=== PATIENT | female | born 1930 | race Caucasian/White ===

== ENCOUNTER 2017-01-16 03:03 | Inpatient (IN) | payer MEDICARE, BC ==
[~2017-01-16] VITALS: Ht 152.4 cm; Wt 54.0 kg
[~2017-01-16 03:03] MED LIST: ASPI-605 PO; CALC-343 PO; CARV6.252 PO; CITA10TA9 PO; FURO20TA4 PO; GABA-534 PO; LEVO75TA PO; LORA10TA68 PO; MULT1TAB73 PO; PANT40TA2 PO; SUCR1ORA6 PO
--- NOTE | 2017-01-16 04:00 | NUR ---
86 YO FEMALE [facility]. PT IS ALERT X 3, PER EMS, PT WAS SENT BY [facility] ABNORMAL LABS; LOW HGB AND HCT. PT DS TO ER BED, SKIN WARM AND DRY, RR EVEN AND UNLABORED. PT GOWNED, PLACED ON PIZZA DELIVERY. AWAITING ORDERS FROM PROVIDER
[2017-01-16 04:08] LABS: BASOPHILS # (AUTO) 0.1 /CMM (0.0-0.2); BASOPHILS % (AUTO) 1.3 % (0.0-2.0); EOSINOPHILS # (AUTO) 0.5 /CMM (0.0-0.7); EOSINOPHILS % (AUTO) 6.9 % (0.0-6.0); HEMATOCRIT 22 % (33-45); HEMOGLOBIN 7.1 g/dL (11.5-14.8); LYMPHOCYTES # (AUTO) 2.4 /CMM (0.8-4.8); MEAN CORPUSCULAR HEMOGLOBIN 30 PG (26.0-33.0); MEAN CORPUSCULAR HGB CONC 32 g/dl (31.0-36.0); MEAN CORPUSCULAR VOLUME 95 fL (82-100); MONOCYTES # (AUTO) 0.7 /CMM (0.1-1.30); MONOCYTES % (AUTO) 9.6 % (2.0-12.0); NEUTROPHILS # (AUTO) 3.6 /CMM (1.8-8.9); NEUTROPHILS % (AUTO) 49.2 % (43.0-81.0); PLATELET COUNT (AUTO) 257 /CMM (150-450); RDW COEFFICIENT OF VARIATION 17.1 (11.5-15.0); RED BLOOD CELL COUNT(AUTO) 2.33 MIL/uL (4.0-5.2); WHITE BLOOD COUNT (AUTO) 7.3 K/uL (4.3-11.0)
[2017-01-16 04:20] LABS: CALCIUM, SERUM 8.7 mg/dL (8.5-10.1); CARBON DIOXIDE 35 mmol/L (21-32); CHLORIDE 101 mmol/L (98-107); CREATININE 1.2 mg/dL (0.6-1.3); GLUCOSE 95 mg/dL (74-106); POTASSIUM 4.1 mmol/L (3.5-5.1); SODIUM SERUM 138 mmol/L (136-145); UREA NITROGEN, BLOOD 40 mg/dL (7-18)
--- NOTE | 2017-01-16 04:23 | NUR ---
MEDICATED PT ORDERED
[2017-01-16 04:26] LABS: INR 0.99 (0.87-1.13); PROTHROMBIN TIME 10.3 SECS (9.5-12.7)
[2017-01-16 04:27] LABS: TROPONIN I 0.025 ng/mL (0.00-0.056)
[2017-01-16 04:33] LABS: ALANINE AMINOTRANSFERASE 19 U/L (12-78); ALBUMIN 2.7 g/dL (3.4-5.0); ALKALINE PHOSPHATASE 71 U/L (46-116); ASPARTATE AMINOTRANSFERASE 25 U/L (15-37); BILIRUBIN,DIRECT 0.1 mg/dL (0.0-0.2); BILIRUBIN,TOTAL 0.4 mg/dL (0.2-1.0); TOTAL PROTEIN, SERUM 6.5 g/dL (6.4-8.2)
--- NOTE | 2017-01-16 05:10 | NUR ---
JOE PAGED BACK
--- NOTE | 2017-01-16 05:35 | NUR ---
RN NOTES RECEIVED PATIENT FROM ER. PATIENT AO X 2, ABLE TO MAKE NEEDS KNOWN. NO ACUTE DISTRESS NOTED. IV SITE PATENT, INTACT. FLUSHED. SKIN ASSESSMENT DONE. ON LOW BED WITH BILATERAL UPPER SIDE RAILS UP. CALL LIGHT WITHIN EASY REACH. WILL CONTINUE TO MONITOR.
--- NOTE | 2017-01-16 06:09 | NUR ---
ENDORSED PROTONIX DRIP TO CONTRACT ADMINISTRATION COORDINATOR
--- NOTE | 2017-01-16 06:11 | NUR ---
TRANSPOTED PT TO TELE BED WITHOUT INCIDENT
--- NOTE | 2017-01-16 06:14 | NUR ---
RN NOTES DR. BARBY AGUILAR. WAITING FOR CALL BACK.
--- NOTE | 2017-01-16 07:57 | NUR ---
MS RN NOTES PT RECEIVED IN NO APPARENT DISTRESS. PT IS RESTING IN BED. LEFT UPPER ARM PICC LINE INTACT AND PATENT. BEDSIDE RAILS ARE UP X2. BED IS LOCKED AND LOWERED. WILL CONTINUE TO MONITOR.
[2017-01-16 08:00] VITALS: BP 130/79
[2017-01-16] MEDS ORDERED: OMEP40CA37 PO (08:05)
[2017-01-16] MEDS ORDERED: ASCO500T9 PO (08:05)
[2017-01-16] MEDS ORDERED: FERR-58 PO (08:05)
[2017-01-16] MEDS ORDERED: ACET-868 PO (08:05)
[2017-01-16] MEDS ORDERED: FURO40TA5 PO (08:05)
[2017-01-16] MEDS ORDERED: POLY17PO4 PO (08:05)
[2017-01-16] MEDS ORDERED: LEVO88TA5 PO (08:05)
[2017-01-16] MEDS ORDERED: SENN8.6T6 PO (08:05)
[2017-01-16] MEDS ORDERED: HYDR-3326 PO (08:05)
[2017-01-16] MEDS ORDERED: ENOX40DI SQ (08:05)
[2017-01-16] MEDS ORDERED: BISA10SU8 RC (08:05)
[2017-01-16] MEDS ORDERED: MULT-24 PO (08:05)
[2017-01-16] MEDS ORDERED: DOCU-25 PO (08:05)
[2017-01-16] MEDS ORDERED: PHEN180S MM (08:05)
[2017-01-16] MEDS ORDERED: NA P133E RC (08:05)
[2017-01-16] MEDS ORDERED: ACID1TAB12 PO (08:05)
[2017-01-16] MEDS ORDERED: NAPR220T66 PO (08:05)
[2017-01-16] MEDS ORDERED: CITA20TA19 PO (08:05)
[2017-01-16] MEDS ORDERED: AMIN30LI4 PO (08:05)
[2017-01-16] MEDS ORDERED: CARV3.122 PO (08:05)
--- NOTE | 2017-01-16 10:55 | NUR ---
WOUND CARE CONSULT PATIENT SEEN AND SKIN ASSESSMENT DONE WITH THE EXCEPTION OF THE RIGHT CLAVICLE WOUND. PATIENT WANTED TO WAIT AND HAVE THAT CHANGED LATER TODAY AFTER GOING TO THE BATHROOM AND GETTING HER AM CARE. SEE PUBLICATION SPECIALIST ASSESSMENT IN [facility] FOR TODAY. PATIENT IS INDEPENDENT WITH BED MOBILITY AT THIS TIME AND IS NOTED TO BE CONTINENT. PATIENT STATES THAT SOMETIMES SHE "DRIBBLES" A LITTLE BIT. WILL RECOMMEND Z GUARD PRN. RECOMMEND SURGICAL CONSULT WELL PODIATRY CONSULT FOR LONG THICKENED TOENAILS X 10 WITH SEVERELY DRY SKIN. PATIENT ON MARGIE BED WITH COMFOR GEL MATTRESS AT THIS TIME. PATIENT WITH SACRAL REGION SKIN STAINING WITH INTACT SKIN. WOUND CARE WILL RE-APPLY WOUND VAC TOMORROW PER PATIENT REQUEST. ALL SUPPLIES ORDERED FROM [facility]. NURSING TO PLACE PATIENT HOME PORTABLE VAC UNIT IN PATIENT BELONGINGS BAG WITH HER NAME TO SEND BACK TO [facility] WITH PATIENT UPON DISCHARGE. THERE WAS NO CAMERA REPAIRMAN SENT WITH PATIENT TO THE HOSPITAL FOR THE PORTABLE VAC MACHINE. PATIENT WITH CURRENT ANGELICA AT 18. ALL SKIN MANAGMENT Addendum: 01/16/17 at 1103 by SYDNI BELTRAN Amended: Links added. Addendum: 01/16/17 at 1108 by SYDNI BELTRAN PUBLICATION SPECIALIST THERE WAS NOTED APPROX 20 CC'S OF SEROSANGUINOUS DRNG IN THE VAC CANNISTER TODAY.
[2017-01-16 12:15] LABS: BASOPHILS # (AUTO) 0.1 /CMM (0.0-0.2); BASOPHILS % (AUTO) 1.3 % (0.0-2.0); EOSINOPHILS # (AUTO) 0.5 /CMM (0.0-0.7); EOSINOPHILS % (AUTO) 7.1 % (0.0-6.0); HEMATOCRIT 22 % (33-45); HEMOGLOBIN 7.1 g/dL (11.5-14.8); LYMPHOCYTES # (AUTO) 1.4 /CMM (0.8-4.8); LYMPHOCYTES % (AUTO) 21.9 % (20.0-44.0); MEAN CORPUSCULAR HEMOGLOBIN 31 PG (26.0-33.0); MEAN CORPUSCULAR HGB CONC 32 g/dl (31.0-36.0); MEAN CORPUSCULAR VOLUME 96 fL (82-100); MONOCYTES # (AUTO) 0.5 /CMM (0.1-1.30); MONOCYTES % (AUTO) 7.7 % (2.0-12.0); PLATELET COUNT (AUTO) 242 /CMM (150-450); RED BLOOD CELL COUNT(AUTO) 2.33 MIL/uL (4.0-5.2); WHITE BLOOD COUNT (AUTO) 6.5 K/uL (4.3-11.0)
[2017-01-16 12:17] LABS: CALCIUM, SERUM 8.5 mg/dL (8.5-10.1); CARBON DIOXIDE 34 mmol/L (21-32); CHLORIDE 101 mmol/L (98-107); CREATININE 1.2 mg/dL (0.6-1.3); GLUCOSE 138 mg/dL (74-106); POTASSIUM 3.9 mmol/L (3.5-5.1); SODIUM SERUM 137 mmol/L (136-145); UREA NITROGEN, BLOOD 36 mg/dL (7-18)
--- NOTE | 2017-01-16 14:00 | NUR ---
MS RN NOTES PATIENTS PROTONIX SCANNED AND SAVED APPEARS IN EMAR NOT SCANNED, MANUALLY CLICKED ADMINISTERED.
[2017-01-16 16:00] VITALS: BP 97/56
--- NOTE | 2017-01-16 18:50 | NUR ---
MS RN CLOSING NOTES PT IS STABLE. ON 2L OF NC SATTING AT 99%. BEDSIDE RAILS ARE UP X2. BED IS LOWERED AND LOCKED. WILL ENDORSE PATIENT TO TUBE TEST TECHNICIAN NURSE FOR CATHY.
[2017-01-16 20:00] VITALS: BP 106/67
--- NOTE | 2017-01-16 20:00 | NUR ---
RN NOTES RECEIVED PATIENT IN BED, ALERT AND ORIENTED X3, ABLE TO VERBALIZE NEEDS, NO SOB, TOLERATING NC AT 2LPM, SPO2 100%, DENIES ANY PAIN AT THIS TIME. YASSINE PICC LINE IS PATENT AND INFUSING WELL WITH PROTONIX IV AT 50 CC/HR. SEEN BY DR. PAZ AND NEW ORDER OF COLONOSCOPY WITH EGD. WILL GET CONSENT. PATIENT NOTIFIED OF PROCEDURE AND WILL SIGN CONSENT. WILL CALL DAUGHTER MILES FOR NOTIFICATION. NEEDS ATTENDED, CALL LIGHT WITHIN REACH.
--- NOTE | 2017-01-16 20:30 | NUR ---
RN NOTES OBTAINED CONSENT FROM PATIENT TO COLONOSCOPY AND EGD IN AM. EXPLAINED TO PATIENT PROCEDURE AND VERBALIZED UNDERSTANDING, NO CALL BACK FROM MILES, DAUGHTER.
--- NOTE | 2017-01-16 20:31 | NUR ---
RN NOTES PLACED CALL TO MILES VILLASENOR, PRIMARY CONTACT AND DAUGHTER AT [phone], LEFT A MESSAGE REGARDING COLONOSCOPY AND EGD IN AM. CELL NO. [phone] IS A NON WORKING NUMBER. PATIENT STARTED DRINKING GOLYTELY ORDERED.
--- NOTE | 2017-01-17 04:30 | NUR ---
RN NOTES PATIENT HAD X6 BM, LIQUID AND GREENISH IN COLOR, PROVIDED PERINEAL CARE
--- NOTE | 2017-01-17 06:55 | NUR ---
RN NOTES PLACED A CALL TO MD DANCE CRITIC FOR ORDER OF IV FLUIDS, PATIENT NPO SINCE 99 FOR COLONOSCOPY TODAY. AWAITING CALL BACK
--- NOTE | 2017-01-17 07:06 | NUR ---
RN NOTES PATIENT RESTING COMFORTABLY IN BED, RESPIRATION EVEN AND UNLABORED, NO DISTRESS, NOT IN APPARENT PAIN, NPO SINCE 99, COMPLIANT WITH GOLYTELY, HAD X7 BM, STOOL IS GREENISH AND LIQUID. EDUCATED ON COLONOSCOPY AND EGD PROCEDURE TODAY. NO CALL BACK FROM DAUGHTER MILES, ALL NEEDS ATTENDED, PROVIDED GOOD PERINEAL CARE, CALL LIGHT WITHIN REACH.
--- NOTE | 2017-01-17 07:20 | NUR ---
RN NOTES NEW ORDER OF D51/2 NS AT 40 CC/HR, ENDORSED TO AM NURSE
[2017-01-17 07:29] LABS: BASOPHILS # (AUTO) 0.1 /CMM (0.0-0.2); BASOPHILS % (AUTO) 0.9 % (0.0-2.0); EOSINOPHILS # (AUTO) 0.4 /CMM (0.0-0.7); EOSINOPHILS % (AUTO) 5.8 % (0.0-6.0); HEMATOCRIT 22 % (33-45); HEMOGLOBIN 7.2 g/dL (11.5-14.8); LYMPHOCYTES % (AUTO) 27.7 % (20.0-44.0); MEAN CORPUSCULAR HEMOGLOBIN 32 PG (26.0-33.0); MEAN CORPUSCULAR HGB CONC 34 g/dl (31.0-36.0); MEAN CORPUSCULAR VOLUME 95 fL (82-100); MONOCYTES # (AUTO) 0.6 /CMM (0.1-1.30); MONOCYTES % (AUTO) 8.6 % (2.0-12.0); NEUTROPHILS # (AUTO) 4.2 /CMM (1.8-8.9); PLATELET COUNT (AUTO) 247 /CMM (150-450); RDW COEFFICIENT OF VARIATION 16.6 (11.5-15.0); RED BLOOD CELL COUNT(AUTO) 2.27 MIL/uL (4.0-5.2); WHITE BLOOD COUNT (AUTO) 7.3 K/uL (4.3-11.0)
[2017-01-17 07:48] LABS: ALANINE AMINOTRANSFERASE 20 U/L (12-78); ALBUMIN 2.6 g/dL (3.4-5.0); ALKALINE PHOSPHATASE 73 U/L (46-116); ASPARTATE AMINOTRANSFERASE 20 U/L (15-37); BILIRUBIN,TOTAL 0.4 mg/dL (0.2-1.0); CALCIUM, SERUM 8.6 mg/dL (8.5-10.1); CARBON DIOXIDE 32 mmol/L (21-32); CHLORIDE 101 mmol/L (98-107); GLUCOSE 99 mg/dL (74-106); MAGNESIUM 1.7 mg/dL (1.8-2.4); PHOSPHORUS 3.3 mg/dL (2.5-4.9); POTASSIUM 4.3 mmol/L (3.5-5.1); SODIUM SERUM 137 mmol/L (136-145); TOTAL PROTEIN, SERUM 6.3 g/dL (6.4-8.2); UREA NITROGEN, BLOOD 26 mg/dL (7-18)
[2017-01-17 08:00] VITALS: BP 100/61
[2017-01-17 08:10] LABS: FERRITIN 491 ng/mL (8-388)
[2017-01-17 09:11] LABS: IRON, SERUM 29 ug/dl (50-175); TOTAL IRON BINDING CAPACITY 187 ug/dl (250-450)
--- NOTE | 2017-01-17 11:01 | NUR ---
WOUND CARE CONSULT: PT SEEN FOR RT CLAVICLE WOUND AND RT GROIN WOUND, PRESENT ON ADMISSION. RECOMMEND SURGICAL CONSULT. PT NOTED TO BE SLIGHTLY AGITATED AND DOES NOT WANT TO TALK ABOUT HER WOUNDS. RECOMMENDATIONS FOR WOUND CARE AND SKIN PROTECTION DISCUSSED WITH NURSING STAFF. WILL SEE PRN. LINDSAY IN AGREEMENT WITH PLAN OF CARE. Addendum: 01/17/17 at 1103 by IZABELLA MCINTOSH WNDNU Amended: Links added.
--- NOTE | 2017-01-17 11:48 | NUR ---
0800. PATIENT RECEIVED AWAKE ALERT AND ORIENTED. IN NO ACUTE RESPIRATORY DISTRESS. N.P.O. FOR G.I. PROCEDURES PENDING FOR TODAY. V.S.S. ALL NEEDS MET. DENIES PAIN AT THIS TIME. Addendum: 01/17/17 at 1151 by JOJO KING RN Amended: Links added.
--- NOTE | 2017-01-17 14:12 | NUR ---
1410. PATIENT AWAKE ALERT AND ORIENTED. REMAINS NPO FOR SCHEDULED G.I. PROCEDURES TODAY. V.S.S. C/O THIRST. ALLOWED TO RINSE MOUTH WITH H20. STABLE AT THIS TIME. Addendum: 01/17/17 at 1421 by JOJO KING RN Amended: Links added.
[2017-01-17 14:13] VITALS: BP 100/61
--- NOTE | 2017-01-17 15:50 | NUR ---
m/s school aide: notes received pt in bed awake, a/ox3 with forgetfulness. daughter and son-in-law at bedside. consent obtained for ct chest with contrast and consent for right clavicle biopsy and debridement and pt verbalized understanding. will continue to monitor. Addendum: 01/17/17 at 1844 by CECE CRAIN QUALIFIED CRAFT WORKER ELECTRICIAN pt remains npo since yesterday per antoni (rn) and pt. kept pt npo, for possible egd/colonoscopy per report. will f/u with dr. rahman.
[2017-01-17 16:00] VITALS: BP 101/61
--- NOTE | 2017-01-17 16:10 | NUR ---
m/s heliotherapist: notes left message to dr. rahman re: egd/colonoscopy procedure via answering machine. per kita reyes (rn), pt is not schedule today/tomorrow. cn made aware. pt unable to recall when she had the last drink of golytely, but stated, "probably yesterday." family at bedside and concerns about pt hasn't eaten. all concerns answered. will continue to monitor. call light within reach.
--- NOTE | 2017-01-17 16:15 | NUR ---
m/s welding foreman: notes 1st bag of magso4 1 gram ivpb given by rn at this time.
--- NOTE | 2017-01-17 16:25 | NUR ---
m/s wheel and axle inspector: notes susan ( special education secretary) returning call and will relay message to dr. rahman.
--- NOTE | 2017-01-17 16:55 | NUR ---
m/s emblem drawer in: notes wound tx done to right groin and right shoulder area as ordered. family remains at bedside. still awaiting for dr. rahman to call back to clarify egd/colonoscopy.
--- NOTE | 2017-01-17 17:05 | NUR ---
m/s aba therapist: notes dr. rahman called back and informed md that pt has been npo since yesterday and prep was started last night, but pt did not finished the golytely (04/24 only). md will call rn bull gang supervisor and will schedule egd at 1830. family left already. pt made aware and verbalized understanding. cn made aware.
--- NOTE | 2017-01-17 17:30 | NUR ---
m/s veneer manufacturer: notes confirmed with rn core assembly supervisor and o.r. team that pt is schedule for egd magy 1829. pt made aware and agreed. bharati (daughter) notified, left message via voice mail re: egd magy.
--- NOTE | 2017-01-17 17:45 | NUR ---
m/s hvac technician: notes castro (younger daughter) notified per pt's request and informed her that pt is schedule for egd at 1830 tonight, spoke to her over the phone and will text bharati (sister) to let her know.
--- NOTE | 2017-01-17 18:28 | NUR ---
m/s change manager: notes pt taken to o.r. at this time via bed accompanied by o.r. team with chart.
--- NOTE | 2017-01-17 19:10 | NUR ---
MS/RN NOTES RECEIVED REPORT FROM [facility]. PER [facility] NURSE PT. IS CURRENTLY GETTING EGD DONE WITH DR. PAZ. PER [facility] NURSE WHEN PT. COMES BACK FROM EGD CALL RADIOLOGY FOR PT. TO HAVE CT WITH CONTRAST PERFORMED. WILL AWAIT FOR PT. ARRIVAL BACK TO THE FLOOR. WILL CONTINUE TO MONITOR.
--- NOTE | 2017-01-17 19:28 | NUR ---
MS/RN NOTES RECEIVED CALL FROM O.R. NURSE. PT. IN STABLE CONDITION. EGD WAS PERFORMED. VITAL SIGNS STABLE. NEW ORDER: FULL LIQUID DIET. PT. WILL BE COMING BACK TO THE FLOOR SOON. WILL AWAIT. PT. ARRIVAL TO THE FLOOR.
--- NOTE | 2017-01-17 19:35 | NUR ---
MS/RN NOTES PT. RETURNED TO THE FLOOR FROM EGD. PT. IN STABLE CONDITION. PT. IS AWAKE, ALERT AND ORIENTED X3. BREATHING EVEN AND UNLABORED ON 2LPM O2 VIA NC. NO SOB, RESPIRATORY DISTRESS OR COMPLAINTS OF PAIN NOTED AT THIS TIME. PT. WITH LEFT UPPER ARM PICC LINE PRESENT, PATENT AND INTACT ADMINISTERING TO PT. D5 1/2 NS @ 40 ML/HR. BED LOCKED AND IN LOWEST POSITION, CALL LIGHT WITHIN REACH, WILL CONTINUE TO MONITOR.
--- NOTE | 2017-01-17 19:57 | NUR ---
MS/RN NOTES PT. LEFT THE FLOOR FOR CT OF CHEST WITH CONTRAST. CONSENT SIGNED AND PLACED IN CHART.
[2017-01-17 20:00] VITALS: BP 139/92
--- NOTE | 2017-01-17 20:55 | NUR ---
MS/RN NOTES PT. ARRIVED BACK TO THE FLOOR FROM CT CHEST WITH CONTRAST. WILL CONTINUE TO MONITOR.
--- NOTE | 2017-01-17 21:25 | NUR ---
MS/RN NOTES PT. COUGHING UP SMALL AMOUNT OF BLOOD S/P EGD AND CT OF CHEST WITH CONTRAST. NO OTHER ACTIVE BLEEDING NOTED. ELEVATED HEAD OF BED. WILL CONTINUE TO MONITOR.
--- NOTE | 2017-01-17 21:55 | NUR ---
MS/RN NOTES PT. IS NO LONGER COUGHING UP BLOOD. PT. IS RESTING COMFORTABLY WITH HEAD OF BED ELEVATED. WILL CONTINUE TO MONITOR.
[2017-01-18] VITALS (8 sets, daily range): BP systolic 87–115; BP diastolic 52–74
--- NOTE | 2017-01-18 06:26 | NUR ---
MS/RN NOTES PT. IS LYING IN BED RESTING. BREATHING EVEN AND UNLABORED ON 2LPM O2 VIA NC. NO SOB, RESPIRATORY DISTRESS OR COMPLAINTS OF PAIN NOTED AT THIS TIME. PT. WITH LEFT UPPER ARM PICC LINE PRESENT, PATENT AND INTACT ADMINISTERING TO PT. D5 1/2 NS @ 40 ML/HR. ALL PT. NEEDS MET. WOUND CARE PROVIDED ORDERED. ALL DUE MEDICATIONS GIVEN. BED LOCKED AND IN LOWEST POSITION, CALL LIGHT WITHIN REACH, WILL ENDORSE TO DAYSHIFT NURSE FOR CONTINUITY OF CARE.
--- NOTE | 2017-01-18 07:10 | NUR ---
MS/RN NOTES PT. IN BED, SLEEPING, AROUSES EASILY. BREATHING EVEN AND UNLABORED, ON 2LPM O2 VIA NC. PT. PICC LINE YASSINE, ON D5 1/2 NS @ 40 ML/HR, TOLERATING WELL, NO SOB. RIGHT CLAVICLE WOUND DRESSING IN PLACE, NO C/O PAIN AT THIS TIME. CALL LIGHT WITHIN REACH. WILL CONT TO MONITOR.
[2017-01-18 07:22] LABS: BASOPHILS # (AUTO) 0.1 /CMM (0.0-0.2); BASOPHILS % (AUTO) 0.8 % (0.0-2.0); EOSINOPHILS # (AUTO) 0.4 /CMM (0.0-0.7); EOSINOPHILS % (AUTO) 3.6 % (0.0-6.0); HEMATOCRIT 21 % (33-45); HEMOGLOBIN 7.1 g/dL (11.5-14.8); LYMPHOCYTES # (AUTO) 1.6 /CMM (0.8-4.8); MEAN CORPUSCULAR HEMOGLOBIN 32 PG (26.0-33.0); MEAN CORPUSCULAR HGB CONC 34 g/dl (31.0-36.0); MEAN CORPUSCULAR VOLUME 95 fL (82-100); MONOCYTES # (AUTO) 0.8 /CMM (0.1-1.30); MONOCYTES % (AUTO) 7.7 % (2.0-12.0); NEUTROPHILS # (AUTO) 7.3 /CMM (1.8-8.9); NEUTROPHILS % (AUTO) 71.9 % (43.0-81.0); PLATELET COUNT (AUTO) 247 /CMM (150-450); RDW COEFFICIENT OF VARIATION 16.5 (11.5-15.0); RED BLOOD CELL COUNT(AUTO) 2.22 MIL/uL (4.0-5.2); WHITE BLOOD COUNT (AUTO) 10.2 K/uL (4.3-11.0)
[2017-01-18 07:47] LABS: CALCIUM, SERUM 8.6 mg/dL (8.5-10.1); CARBON DIOXIDE 30 mmol/L (21-32); CHLORIDE 100 mmol/L (98-107); GLUCOSE 102 mg/dL (74-106); MAGNESIUM 2.2 mg/dL (1.8-2.4); PHOSPHORUS 3.7 mg/dL (2.5-4.9); POTASSIUM 4.3 mmol/L (3.5-5.1); SODIUM SERUM 136 mmol/L (136-145); UREA NITROGEN, BLOOD 18 mg/dL (7-18)
--- NOTE | 2017-01-18 12:17 | NUR ---
PATIENT TOLERATED FULL LIQUIDS DIET, NO C/O NAUSEA, NO EPISODE OF VOMITING. PATIENT PREVIOUSLY ON REGULAR DIET, RESUMED ORDERED.
--- NOTE | 2017-01-18 15:32 | NUR ---
V/S TAKEN AND RECORDED. WITNESSED BY ANOTHER RN, STARTED ON BLOOD TRANSFUSION 1 UNIT PRBC. WILL MONITOR PATIENT CLOSELY.
--- NOTE | 2017-01-18 15:48 | NUR ---
BLOOD TRANSFUSION IN PROGRESS, PATIENT TOLERATING WELL. AFEBRILE, NO C/O SOB, DENIES CHEST PAIN. BREATHING EVEN AND NON LABORED. NO C/O PAIN OR ANY DISCOMFORT.
--- NOTE | 2017-01-18 16:21 | NUR ---
BLOOD TRANSFUSION STILL IN PROGRESS, PATIENT REMAINS STABLE, NO ADVERSE SIDE EFFECT. WILL CONT TO MONITOR CLOSELY.
--- NOTE | 2017-01-18 18:40 | NUR ---
MS/RN CLOSING NOTES PATIENT IN BED, V/S REMAINS STABLE. POST BLOOD TRANSFUSION 1 UNIT PRBC WITH NO ADVERSE SIDE EFFECT. RIGHT CLAVICLE WOUND DRESSING CHANGED TODAY, PATIENT TOLERATED WELL. IV D5 1/2 NS INFUSING AT 40ML/HR, TOLERATING WELL. NO C/O PAIN AT THIS TIME. WILL ENDORSE TO SOLAR INSTALLER TECHNICIAN RN FOR CONTINUITY OF CARE.
--- NOTE | 2017-01-18 19:10 | NUR ---
MS/RN NOTES RECEIVED PT. LYING IN BED RESTING. BREATHING EVEN AND UNLABORED ON 2LPM O2 VIA NC. NO SOB, RESPIRATORY DISTRESS OR COMPLAINTS OF PAIN NOTED AT THIS TIME. PT. WITH LEFT UPPER ARM PICC LINE PRESENT, PATENT AND INTACT ADMINISTERING TO PT. D5 1/2 NS @ 40 ML/HR. BED LOCKED AND IN LOWEST POSITION, CALL LIGHT WITHIN REACH, WILL CONTINUE TO MONITOR.
--- NOTE | 2017-01-19 06:09 | NUR ---
MS/RN NOTES PT. IS LYING IN BED RESTING. BREATHING EVEN AND UNLABORED ON 2LPM O2 VIA NC. NO SOB, RESPIRATORY DISTRESS OR COMPLAINTS OF PAIN NOTED AT THIS TIME. PT. WITH LEFT UPPER ARM PICC LINE PRESENT, PATENT AND INTACT ADMINISTERING TO PT. D5 1/2 NS @ 40 ML/HR. ALL PT. NEEDS MET. PT. TURNED AND REPOSITIONED Q2H AND NEEDED. ALL DUE MEDICATIONS GIVEN. BED LOCKED AND IN LOWEST POSITION, CALL LIGHT WITHIN REACH, WILL ENDORSE TO DAYSHIFT NURSE FOR CONTINUITY OF CARE.
[2017-01-19 06:25] LABS: BASOPHILS # (AUTO) 0.1 /CMM (0.0-0.2); BASOPHILS % (AUTO) 1.1 % (0.0-2.0); EOSINOPHILS # (AUTO) 0.5 /CMM (0.0-0.7); EOSINOPHILS % (AUTO) 6.4 % (0.0-6.0); HEMATOCRIT 26 % (33-45); HEMOGLOBIN 8.6 g/dL (11.5-14.8); LYMPHOCYTES # (AUTO) 1.8 /CMM (0.8-4.8); LYMPHOCYTES % (AUTO) 21.8 % (20.0-44.0); MEAN CORPUSCULAR HEMOGLOBIN 31 PG (26.0-33.0); MEAN CORPUSCULAR HGB CONC 34 g/dl (31.0-36.0); MEAN CORPUSCULAR VOLUME 92 fL (82-100); MONOCYTES % (AUTO) 12.3 % (2.0-12.0); NEUTROPHILS # (AUTO) 4.9 /CMM (1.8-8.9); NEUTROPHILS % (AUTO) 58.4 % (43.0-81.0); PLATELET COUNT (AUTO) 234 /CMM (150-450); RDW COEFFICIENT OF VARIATION 17.9 (11.5-15.0); RED BLOOD CELL COUNT(AUTO) 2.77 MIL/uL (4.0-5.2); WHITE BLOOD COUNT (AUTO) 8.3 K/uL (4.3-11.0)
[2017-01-19 06:44] LABS: CALCIUM, SERUM 8.4 mg/dL (8.5-10.1); CARBON DIOXIDE 29 mmol/L (21-32); CHLORIDE 98 mmol/L (98-107); CREATININE 0.9 mg/dL (0.6-1.3); GLUCOSE 100 mg/dL (74-106); MAGNESIUM 1.7 mg/dL (1.8-2.4); PHOSPHORUS 3.2 mg/dL (2.5-4.9); POTASSIUM 3.8 mmol/L (3.5-5.1); SODIUM SERUM 133 mmol/L (136-145); UREA NITROGEN, BLOOD 13 mg/dL (7-18)
--- NOTE | 2017-01-19 07:30 | NUR ---
MS/RN NOTES RECEIVED PATIENT IN BED, SLEEPING, AROUSES EASILY. APPEARS COMFORTABLE IN BED, ON 2LPM O2 VIA NC. BREATHING EVEN AND NON LABORED. PICC LINE YASSINE, ON D5 1/2 NS @ 40 ML/HR. RIGHT CLAVICLE WOUND DRESSING IN PLACE. NO C/O PAIN AT THIS TIME. SCD IN PLACE. CALL LIGHT WITHIN REACH. BED LOW. WILL CONT TO MONITOR
[2017-01-19 08:00] VITALS: BP 136/69
[2017-01-19 16:00] VITALS: BP 124/71
--- NOTE | 2017-01-19 18:40 | NUR ---
RN NOTES PER EDUAR MONROY REGULATORY PROCESS MANAGER RIGHT CLAVICLE BIOPSY AND DEBRIDEMENT SCHEDULED. CONSENT SIGHED AND PLACED IN THE CHART.
--- NOTE | 2017-01-19 18:44 | NUR ---
RN CLOSING NOTES PATIENT ALERT AND ORIENTED X3. VS STABLE. RESPIRATIONS EVEN AND UNLABORED. NO RESPIRATORY DISTRESS NOTED. PICC LINE YASSINE, ON D5 1/2 NS @ 40 ML/HR. RIGHT CLAVICLE WOUND DRESSING IN PLACE. NO C/O PAIN. CALL LIGHT WITHIN REACH. BED IN LOW POSITION. WILL ENDORSE TO DOUBLE NEEDLE STITCHERCHAIN DYER FOR CONTINUITY OF CARE.
--- NOTE | 2017-01-19 19:15 | NUR ---
MS/RN NOTES RECEIVED PT. SITTING UP IN BED. PT. IS AWAKE, ALERT AND ORIENTED X3. BREATHING EVEN AND UNLABORED ON 2LPM O2 VIA NC. NO SOB, RESPIRATORY DISTRESS OR COMPLAINTS OF PAIN NOTED AT THIS TIME. PT. WITH LEFT UPPER ARM PICC LINE PRESENT, PATENT AND INTACT ADMINISTERING TO PT. D5 1/2 NS @ 40 ML/HR. BED LOCKED AND IN LOWEST POSITION, CALL LIGHT WITHIN REACH, WILL CONTINUE TO MONITOR.
[2017-01-19 20:43] VITALS: BP 118/69
--- NOTE | 2017-01-19 23:00 | NUR ---
MS/RN NOTES RECEIVED GOLYTELY MEDICATION FROM NURSING IN STORE MARKETER. BEGAN ADMINISTERING GOLYTELY TO PT. UNABLE TO SCAN MEDICATION. PT. TOLERATING WELL. PER NURSING IN STORE MARKETER PT. IS NOT ON SURGERY SCHEDULE AT THIS TIME. WILL CONTINUE TO MONITOR.
--- NOTE | 2017-01-20 06:46 | NUR ---
MS/RN NOTES PT. IS LYING IN BED RESTING. BREATHING EVEN AND UNLABORED ON 2LPM O2 VIA NC. NO SOB, RESPIRATORY DISTRESS OR COMPLAINTS OF PAIN NOTED AT THIS TIME. PT. WITH LEFT UPPER ARM PICC LINE PRESENT, PATENT AND INTACT ADMINISTERING TO PT. D5 1/2 NS @ 40 ML/HR. PT. CONTINUING TO DRINK GOLYTELY ORDERED. THERE IS STILL NO ORDER FOR COLONOSCOPY AND NOT ON THE SURGERY SCHEDULE AT THIS TIME. PT. CONTINUES TO HAVE WATERY LIQUID BROWN COLORED STOOL, STILL IS NOT CLEAR YET. WILL ENDORSE TO DAYSHIFT TO FOLLOW UP. ALL PT. NEEDS MET. BED LOCKED AND IN LOWEST POSITION, CALL LIGHT WITHIN REACH, WILL ENDORSE TO DAYSHIFT NURSE FOR CONTINUITY OF CARE.
--- NOTE | 2017-01-20 07:10 | NUR ---
MS RN NOTES RECEIVED PATIENT IN BED, SLEEPING, AROUSES EASILY. ON 2LPM VIA NC. NO FACIAL GRIMACING, APPEARS COMFORTABLE IN BED. CALL LIGHT WITHIN REACH. PER NIGHT RN REPORT PATIENT WAS STARTED ON GOLYTELY LAST NIGHT AT 2300 AND DID HAVE BOWEL MOVEMENT MULTIPLE TIMES, LAST WAS 0600 THIS MORNING BUT STILL BROWN COLOR AND NOT CLEAR. CONTAINER OF GOLYTELY TO FINISH AND PATIENT IS AWARE, POSSIBLE COLONOSCOPY. WILL F/U WITH /GI.
[2017-01-20 07:29] LABS: CALCIUM, SERUM 8.2 mg/dL (8.5-10.1); CARBON DIOXIDE 28 mmol/L (21-32); CHLORIDE 97 mmol/L (98-107); CREATININE 0.9 mg/dL (0.6-1.3); GLUCOSE 102 mg/dL (74-106); POTASSIUM 3.8 mmol/L (3.5-5.1); SODIUM SERUM 133 mmol/L (136-145); UREA NITROGEN, BLOOD 15 mg/dL (7-18)
[2017-01-20 08:00] VITALS: BP 139/83
--- NOTE | 2017-01-20 08:02 | NUR ---
RECEIVED PHONE CALL FROM DR. PAZ/GI, ORDERED CLEAR LIQUID DIET AND MAGNESIUM CITRATE AFTER GOLYTELY IF NOT CLEAR. PATIENT IS FOR COLONOSCOPY TOMORROW. SURGERY IS AWARE, SPOKE TO MAKSIM/ALESHAI.
[2017-01-20 16:00] VITALS: BP 140/74
--- NOTE | 2017-01-20 16:13 | NUR ---
LIDOCAINE 2% ADMINISTERED BY DR. ROBERTSON PRIOR RIGHT CLAVICLE WOUND BIOPSY AT BEDSIDE, PATIENT TOLERATED WELL. SPECIMEN SEND TO LAB BY DR. ROBERTSON
--- NOTE | 2017-01-20 18:19 | NUR ---
RN CLOSING NOTES PATIENT IN BED, PICC LINE YASSINE, ON NS @ 50 ML/HR. POST RIGHT CLAVICLE WOUND BIOPSY BY DR. ROBERTSON TODAY, RIGHT CLAVICLE WOUND, DRESSING IN PLACE, NO BLEEDING NOTED. GOLYTELY PREP ONGOING, PATIENT HAD BOWEL MOVEMENT X3 DURING THE SHIFT, LOOSE AND BROWN COLOR. NPO MIDNIGHT, FOR COLONOSCOPY IN AM ORDERED. CONSENT FORM SIGNED AND PLACE IN THE CHART. CALL LIGHT WITHIN REACH. BED IN LOW POSITION. WILL ENDORSE TO BUNGY JUMP MASTER RN FOR CONTINUITY OF CARE.
--- NOTE | 2017-01-20 19:15 | NUR ---
RN OPEN NOTES RECEIVED PATIENT AWAKE IN BED. A/O X3. NO SIGNS OF DISTRESS OR DISCOMFORT. BREATHING EVEN AND UNLABORED. DRESSING ON R CLAVICLE C/D/I. HAS YASSINE PICC WITH NS INFUSING, PATENT AND INTACT, NO SIGNS OF REDNESS OR INFILTRATION. GOLYTELY PREP ONGOING. BED IN LOW LOCKED POSITION WITH SIDE RAILS X2. CALL LIGHT WITHIN REACH. WILL CONTINUE TO MONITOR.
--- NOTE | 2017-01-20 19:17 | NUR ---
RN NOTES DR. PAZ AT BEDSIDE, VERBAL ORDER TO ADMINISTER FLEET ENEMA IN AM IF BOWELS ARE STILL NOT CLEAR. WILL CONTINUE TO MONITOR.
[2017-01-20 20:00] VITALS: BP 127/71
--- NOTE | 2017-01-20 22:00 | NUR ---
RN NOTES ADMINISTERED TYLENOL 650MG ORDERED FOR HEADACHE. WILL CONTINUE TO MONITOR.
--- NOTE | 2017-01-21 | NUR ---
RN NOTES PATIENT REFUSED TO DRINK REMAINING 500ML OF GOLYTELY AND ALSO WOULD NOT DRINK MAGNESIUM CITRATE, STATING SHE CANNOT DRINK ANYTHING ELSE, SHE DOESN'T THINK SHE HAS ANY ROOM LEFT IN HER STOMACH. PATIENT EDUCATION REINFORCED. WILL CONTINUE TO MONITOR.
[2017-01-21 06:37] LABS: BASOPHILS # (AUTO) 0.1 /CMM (0.0-0.2); BASOPHILS % (AUTO) 1.4 % (0.0-2.0); EOSINOPHILS # (AUTO) 0.6 /CMM (0.0-0.7); EOSINOPHILS % (AUTO) 8.2 % (0.0-6.0); HEMATOCRIT 26 % (33-45); HEMOGLOBIN 8.5 g/dL (11.5-14.8); LYMPHOCYTES # (AUTO) 1.7 /CMM (0.8-4.8); LYMPHOCYTES % (AUTO) 23.5 % (20.0-44.0); MEAN CORPUSCULAR HEMOGLOBIN 31 PG (26.0-33.0); MEAN CORPUSCULAR HGB CONC 33 g/dl (31.0-36.0); MEAN CORPUSCULAR VOLUME 94 fL (82-100); MONOCYTES # (AUTO) 0.7 /CMM (0.1-1.30); MONOCYTES % (AUTO) 10.1 % (2.0-12.0); NEUTROPHILS # (AUTO) 4.1 /CMM (1.8-8.9); NEUTROPHILS % (AUTO) 56.8 % (43.0-81.0); PLATELET COUNT (AUTO) 276 /CMM (150-450); RDW COEFFICIENT OF VARIATION 17.4 (11.5-15.0); RED BLOOD CELL COUNT(AUTO) 2.71 MIL/uL (4.0-5.2); WHITE BLOOD COUNT (AUTO) 7.3 K/uL (4.3-11.0)
[2017-01-21 06:57] LABS: CARBON DIOXIDE 27 mmol/L (21-32); CHLORIDE 101 mmol/L (98-107); CREATININE 0.9 mg/dL (0.6-1.3); GLUCOSE 95 mg/dL (74-106); MAGNESIUM 1.8 mg/dL (1.8-2.4); PHOSPHORUS 3.6 mg/dL (2.5-4.9); POTASSIUM 3.9 mmol/L (3.5-5.1); SODIUM SERUM 137 mmol/L (136-145); UREA NITROGEN, BLOOD 10 mg/dL (7-18)
--- NOTE | 2017-01-21 07:24 | NUR ---
RN CLOSING NOTES PATIENT AWAKE IN BED. A/O X3. NO SIGNS OF DISTRESS OR DISCOMFORT. BREATHING EVEN AND UNLABORED. DRESSING ON R CLAVICLE C/D/I. HAS YASSINE PICC WITH NS INFUSING, PATENT AND INTACT, NO SIGNS OF REDNESS OR INFILTRATION. ALL NEEDS MET. NO SIGNIFICANT CHANGES THROUGH THE NIGHT. BED IN LOW LOCKED POSITION WITH SIDE RAILS X2. CALL LIGHT WITHIN REACH. ENDORSED TO AM SHIFT FOR CATHY.
--- NOTE | 2017-01-21 07:30 | NUR ---
m/s exec. creative director: initial assessment received pt in bed awake, a/ox4. pt remains npo for colonoscopy this morning. pt is clear of particles. no c/o pain or any discomfort. no s/s of bleeding. instructed to call for assistance. will monitor.
[2017-01-21 08:00] VITALS: BP 144/80
--- NOTE | 2017-01-21 08:57 | NUR ---
m/s hiv counselor: notes taken to o.r. for colonoscopy via bed at this time with o2 on and chart accompanied by o.r. tech.
[2017-01-21 10:00] VITALS: BP 126/74
--- NOTE | 2017-01-21 10:00 | NUR ---
m/s community engagement coordinator: notes received pt from recovery room with dx: s/p colonoscopy. pt is awake, a/ox3. no c/o pain at this time. breakfast ordered per order. vss. in no apparent distress noted. instructed to call for assistance. will continue to monitor.
--- NOTE | 2017-01-21 13:00 | NUR ---
m/s interactive account manager: notes dr. lugo here and plan to discharge pt back to snf. awaiting order. d'c planning per case management. pt made aware and offer flu vaccine before d'c back to snf, but pt refused. pt wants to rest a while and ask me to call her daughters to let them know that she is leaving today as stated. call light within reach. will monitor.
--- NOTE | 2017-01-21 13:50 | NUR ---
m/s bevel mill operator: md visit seen and examined by dr. lugo with order to d'c back to snf. order acknowledged. case management making arrangement.
--- NOTE | 2017-01-21 14:15 | NUR ---
m/s computer information science professor: notes dr. lugo notified re: picc line with order okay to remove it. order read back and carried out and acknowledged.
--- NOTE | 2017-01-21 15:00 | NUR ---
m/s type caster: notes bharati (daughter) notified, but too busy per legal secretary, left message re: d'c back to snf. also called castro (other daughter), spoke to her over the phone and made aware re: d'c back to snf today.
--- NOTE | 2017-01-21 15:15 | NUR ---
m/s rolling mill plugger: notes report given to deidre (nurse) for continuity of care. eta for shiva at 1630 per case management. Addendum: 01/21/17 at [address] CECE STREETN informed deidre (nurse) that there is no vaccination (flu or pneumonia) given here due to pt refusal.
--- NOTE | 2017-01-21 15:50 | NUR ---
m/s environmental laboratory technician: notes discharged instructions given to pt and verbalized understanding. offered flu vaccine once more, but pt refused again, stated, "ask the doctor." picc line to left upper arm removed by rn and witnessed by me with tip intact with no bleeding, no redness, and no swelling noted
--- NOTE | 2017-01-21 16:15 | NUR ---
m/s sales performance analyst: notes [facility] here and report given to one of the crew. all d'c papers given to ambulance; also pt has copies per request. all belongings with wound vac given to pt to take to snf. pt stable for discharge.
--- NOTE | 2017-01-21 16:24 | NUR ---
m/s photography instructor: discharged discharged back to snf in stable condition via ambulance accompanied by 2 crew with all belongings/valuables.
== END 2017-01-21 16:20 | DRG 987 ==
LOC: ER 03:10 → TELE 06:07 → MED 08:49
PROVIDERS: ADMIT Internal Medicine; ATTEND Internal Medicine
PROC: 0DB68ZZ Excision of Stomach, Via Natural or Artificial Opening Endoscopic (ICD-10-PCS; 2017-01-17)
PROC: 0DB68ZX Excision of Stomach, Via Natural or Artificial Opening Endoscopic, Diagnostic (ICD-10-PCS; principal; 2017-01-17 18:30)
PROC: 30233N1 Transfusion of Nonautologous Red Blood Cells into Peripheral Vein, Percutaneous Approach (ICD-10-PCS; 2017-01-18)
PROC: 0PB90ZX Excision of Right Clavicle, Open Approach, Diagnostic (ICD-10-PCS; 2017-01-20)
PROC: 0DBP8ZZ Excision of Rectum, Via Natural or Artificial Opening Endoscopic (ICD-10-PCS; 2017-01-21)
DX: K62.1 Rectal polyp (principal); K29.71 Gastritis, unspecified, with bleeding; I11.0 Hypertensive heart disease with heart failure; I50.9 Heart failure, unspecified; I35.0 Nonrheumatic aortic (valve) stenosis; D22.30 Melanocytic nevi of unspecified part of face; S11.80XA Unspecified open wound of other specified part of neck, initial encounter; E03.9 Hypothyroidism, unspecified; S31.103A Unspecified open wound of abdominal wall, right lower quadrant without penetration into peritoneal cavity, initial encounter; G31.84 Mild cognitive impairment of uncertain or unknown etiology; X58.XXXA Exposure to other specified factors, initial encounter; Y93.9 Activity, unspecified; Y92.009 Unspecified place in unspecified non-institutional (private) residence as the place of occurrence of the external cause; L98.8 Other specified disorders of the skin and subcutaneous tissue; D50.9 Iron deficiency anemia, unspecified; K21.9 Gastro-esophageal reflux disease without esophagitis; K64.1 Second degree hemorrhoids; M81.0 Age-related osteoporosis without current pathological fracture; K31.7 Polyp of stomach and duodenum
CPT/HCPCS: 36415; 71010-TC; 71260-TC; 80048-TC; 80053-TC; 80076-TC; 82272-TC; 82728-TC; 83540-TC; 83735-TC; 84100-TC; 84134-TC; 84484-TC; 85025-TC; 85730-TC; 86850-TC; 86921-TC; 87081-TC; 88305-TC; 88311-TC; 88313-TC; 88342; A4216; A4606; A6248; A6253; A6402; A6403; C9113; J2704; J3475; J3490; J7030; J7040; J7050; P9016-BL; Q9967; Z7610